=== PATIENT | male | born 1960 | race Caucasian/White ===

== ENCOUNTER 2016-05-25 07:53 | Day surgery (SDC) | payer MEDICARE, BC ==
--- NOTE | 2016-05-25 06:54 | History and Physical Report ---
DATE OF EVALUATION: 05/25/2016. CHIEF COMPLAINT AND HISTORY OF CHIEF COMPLAINT: This patient presents with a history of postlaminectomy radiculitis. His studies confirm a laminectomy at L4 -5 and 5-1. His pain pattern is low back with a bilateral lower extremity extension. Multiple conservative efforts have failed. Spinal cord stimulator is in place but has failed. He is here for an implanted spinal catheter infusion trial with hydromorphone to determine if the implantation of a permanent system can be of any value in pain control. PAST MEDICAL HISTORY: Sleep apnea, radiculitis. REVIEW OF SYSTEMS: The patient is appropriate and in no acute distress. The remainder of the systems review shows breathing difficulties, sleep disturbance. SOCIAL HISTORY: Caffeine. FAMILY HISTORY: Noncontributory. PAST SURGICAL HISTORY: Knee surgery, lumbar spinal surgery, hernia repair, stimulator implant. ALLERGIES: None. MEDICATIONS ON ADMISSION: To be provided. PHYSICAL EXAMINATION: General: Height is 6 feet, 1 inches. Weight is 200 pounds. Vital Signs: Unavailable. HEENT: Within normal limits. Lungs: Clear. Heart: Regular rate and rhythm. Abdomen: Nontender. Musculoskeletal: Examination of the musculoskeletal system shows diffuse tenderness throughout the lumbar spine. Range of motion produces pain throughout both legs. Neurologic: Cranial nerves are intact. IMPRESSIONS: 1. POSTLUMBAR LAMINECTOMY SYNDROME, ICD10 CODE M96.1. 2. LUMBAR RADICULITIS, ICD10 CODE M54.16 AND M54.17. PLANS: This patient is here for an implanted spinal catheter infusion trial with hydromorphone. We are implanting the catheter to reduce the incidence of dural puncture headaches but will perform an epidural blood patch. This will require the patient to be flat for four hours. Although the procedure could be outpatient, an overnight stay will be evaluated. All of the potential risks, side effects, and complications have been reviewed including spinal headache, nerve root injury, paralysis, and increasing pain. He has read all of the appropriate information and read the company-provided literature explaining the side effects and potential complications and has agreed to proceed. Kwasi Cano D.O. Date Time JOB NUMBER: [id number] cc: Saji Redding
[~2016-05-25 07:53] MED LIST: ACETAMINOPHEN 1000MG/100 ML PREMIX IV ONE; CEFAZOLIN 2 Gram 50 ML IVPB ONE; FAMOTIDINE 20MG TABLET PO ONE; HYDROMORPHONE HCL IV ONE; MECLIZINE 25 MG TABLET PO ONE; METOCLOPRAMIDE 10 MG TABLET PO ONE; SODIUM CHLORIDE 0.9% IV ONE
[2016-05-25] MEDS ORDERED: SENNOSIDES/DOCUSATE SODIUM UD CAPSULE PO PRN ×2 (11:31)
[2016-05-25] MEDS ORDERED: HYDROCODONE/APAP 7.5/325MG TABLET PO PRN ×2 (11:31)
[2016-05-25] MEDS ORDERED: METOCLOPRAMIDE 10 MG TABLET PO PRN (11:31)
[2016-05-25] MEDS ORDERED: AL HYDROX/MAG HYDROX 30ML UD PO PRN (11:31)
[2016-05-25] MEDS ORDERED: OXYCODONE/APAP 10MG-325MG TABLET PO PRN (11:31)
[2016-05-25] MEDS ORDERED: ACETAMINOPHEN 325 MG TAB PO PRN ×2 (11:31)
[2016-05-25] MEDS ORDERED: NALOXONE 0.4 MG/1 ML VIAL IVP PRN (11:31)
[2016-05-25] MEDS ORDERED: METOCLOPRAMIDE HCL 10 MG/2 ML VIAL IVP PRN (11:31)
[2016-05-25] MEDS ORDERED: HYDROMORPHONE HCL 1 MG/ML CPJ IM PRN (11:31)
[2016-05-25] MEDS ORDERED: HYDROMORPHONE HCL 2 MG/ML VIAL IM PRN (11:31)
[2016-05-25] MEDS ORDERED: TEMAZEPAM 15 MG CAPSULE PO PRN ×2 (11:31)
[2016-05-25] MEDS ORDERED: DIPHENHYDRAMINE HCL IV 50 MG/ML VIAL IVP PRN ×2 (11:31)
[2016-05-25] MEDS ORDERED: DIPHENHYDRAMINE HCL 25 MG CAPSULE PO PRN ×2 (11:31)
[2016-05-25] MEDS ORDERED: RINGERS SOLUTION,LACTATED 1,000 ML IV PRN (11:51)
[2016-05-25] MEDS ORDERED: LORAZEPAM 0.5 MG TABLET PO PRN (12:56)
[2016-05-25] MEDS: RINGERS SOLUTION,LACTATED 1,000 ML IV SCH ×2 (12:58→14:18)
[2016-05-25] MEDS ORDERED: BUPIVACAINE 0.5% W/EPI MPF 30 ML VIAL IVP ONE (14:54)
[2016-05-25] MEDS ORDERED: CEFAZOLIN 1G VIAL IM ONE (14:54)
[2016-05-25] MEDS ORDERED: LIDOCAINE 1% W/EPI 1:200,000 MPF 30ML SQ ONE (14:54)
[2016-05-25] MEDS ORDERED: LIDOCAINE 2% MDV (20MG/ML) 20ML VIAL IV ONE (15:48)
[2016-05-25] MEDS ORDERED: PROPOFOL 10 MG/ML VIAL IV ONE (15:48)
[2016-05-25] MEDS ORDERED: FENTANYL PF 100MCG/2ML VIAL IV ONE (15:48)
[2016-05-25] MEDS ORDERED: DEXMEDETOMIDINE HCL 200 MCG/2 ML VIAL IV ONE (15:48)
[2016-05-25] MEDS ORDERED: MIDAZOLAM HCL 2MG/2ML VIAL IV ONE (15:48)
[2016-05-25] MEDS: CEFAZOLIN 2 Gram 50 ML IVPB SCH (16:55)
[2016-05-25] MEDS: OXYCODONE/APAP 10MG-325MG TABLET PO PRN ×2 (17:00→21:40)
[2016-05-25] MEDS ORDERED: MELOXICAM 7.5 MG PO SCH (22:00)
[2016-05-25] MEDS ORDERED: ATROVASTATIN 40 MG PO SCH (22:00)
[2016-05-25] MEDS ORDERED: PATIENT OWN MED: METFORMIN 500 MG PO SCH (22:00)
[2016-05-25] MEDS ORDERED: LISINOPRIL 2.5 MG PO SCH (22:00)
[2016-05-25] MEDS ORDERED: PATIENT OWN MED: SERTRALINE 100 MG PO SCH (22:00)
[2016-05-25] MEDS ORDERED: PIOGLITAZONE 30 MG PO SCH (22:00)
[2016-05-26] MEDS: CEFAZOLIN 2 Gram 50 ML IVPB SCH ×2 (00:04→08:35)
[2016-05-26] MEDS: OXYCODONE/APAP 10MG-325MG TABLET PO PRN ×2 (03:36→08:40)
[2016-05-26] MEDS: RINGERS SOLUTION,LACTATED 1,000 ML IV SCH (06:42)
[2016-05-26] MEDS ORDERED: ARIPIPRAZOLE 10 MG PO SCH (10:00)
[2016-05-26] MEDS ORDERED: PATIENT OWN MED: HYDROCHLOROTHIAZIDE 25 MG PO SCH (10:00)
--- NOTE | 2016-05-26 15:38 | Operative Note - [facility] ---
DATE OF SURGERY: 05/25/16 PREOPERATIVE DIAGNOSES: 1. POST LUMBAR LAMINECTOMY SYNDROME, ICD-10 CODE = M96.1. 2. LUMBAR RADICULITIS, ICD-10 CODE = M54.16 AND M54.17. OPERATION: 1. FLUOROSCOPICALLY-GUIDED SPINAL ACCESS AT L1/2. PLACEMENT OF THIN-WALLED SPINAL CATHETER T11. 2. DIAGNOSTIC MYELOGRAPHY WITH RADIOLOGIC SUPERVISION AND INTERPRETATION. 3. SPINAL OPIOID BOLUS HYDROMORPHONE SPINAL SPACE, 0.002 MG. 4. INCISION, SUBCUTANEOUS DISSECTION, AND ANCHORING OF CATHETER TO SUPRASPINOUS FASCIA USING ANCHORING DEVICE AND NONABSORBABLE SUTURE. 5. INCISION, SUBCUTANEOUS DISSECTION, AND CREATION OF SUBCUTANEOUS POUCH AT RIGHT POSTERIOR/SUPERIOR GLUTEAL MARGIN. 6. TUNNELING CATHETER MIDLINE INTO FLANK POSTERIOR POUCH, RESECT INTERFACE SPINAL CATHETER WITH A SECONDARY CATHETER COMPONENT WITH CONNECTOR, TUNNELING SECONDARY CATHETER COMPONENT 6 CM SUPERIOR EXITING SKIN. 7. INTERFACE EXTERNAL CATHETER TO EXTERNAL PUMP SET TO INFUSE HYDROMORPHONE AT 0.04 MG PER DAY. 8. CLOSURE OF MIDLINE INCISION, VICRYL FOR FASCIA, RUNNING SUBCUTICULAR VICRYL FOR SKIN. CLOSURE OF GLUTEAL POUCH, NYLON SUTURE. 9. EPIDURAL BLOOD PATCH AT L2/3. 20 mL AUTOLOGOUS BLOOD DRAWN STERILE TECHNIQUE , LEFT ANTECUBITAL. DRESSING REINFORCED. 10. TRANSFER PATIENT TO RECOVERY ROOM FLAT, PILLOW UNDER HEAD AND KNEES, STABLE , SHOWING NO SIDE-EFFECTS FROM THE PROCEDURE OR THE SEDATION. SURGEON: PHILIP ROWE D.O. ANESTHESIA: LOCAL SEDATION. ANESTHESIA PROVIDER: TU CALDERÓN CRNA INDICATION: This patient with post laminectomy radiculitis is here for an implanted spinal catheter infusion trial Hydromorphone to determine if the implantation of a permanent system can be of any value in pain control. PROCEDURE: Intravenous line, vital sign monitoring, IV sedation, prepped, draped, sterile technique, patient position on the operating room table prone. Sterile prep, sterile technique, and under imaging, the spinal interspace above his fusion and laminectomy was marked at L1/2 and at L2/3. At L1/2, skin infiltrated, then a #20 gauge spinal needle beveled with a long axis in a paramedian approach was placed into the spinal space. With CSF flow, a thin- walled spinal catheter was advanced, positioned T11. Diagnostic myelography performed resulting flow characteristics were smooth and linear into the space confirming spinal flow. Catheter was midline. No bend, kinks, or turns. A bolus of Hydromorphone through the spinal catheter, 0.002 mg, was given. The skin above and below the needle infiltrated, incision was made and subcutaneous dissection was conducted to the supraspinous fascia. The needle was removed and the catheter was anchored to the supraspinous fascia using an anchor device and nonabsorbable suture. At the right posterior gluteal margin, a site ultimately for the pump picked by the patient, skin infiltrated, incision made, and a small subcutaneous pouch was formed. Spinal catheter was then tunneled into the posterior gluteal pouch exiting in the pouch itself. Spinal catheter was then resected and interfaced by way of a connector to a second catheter component. This second catheter component was tunneled superior exiting the skin above 6 cm. The external catheter was then interfaced to an external pump, which was set to infuse Hydromorphone at 0.04 mg per day. Antibiotic irrigation and Bovie for hemostasis. The midline incision was closed Vicryl for fascia, running subcuticular Vicryl for skin. The posterior pouch incision closed with nylon. Sterile dressings placed. At L2/3, the site below the puncture point, which had been infiltrated, an #18 gauge Tuohy was then positioned through the site and into the epidural space with a [id number] technique. Simultaneously, 20 mL of autologous blood drawn sterile technique. Using blood placed onto the field, then an epidural blood patch was then performed at this site with this blood. This needle was removed. The site was cleaned. Dressings reinforced so that all catheter connections were under sterile dressing. He was then transported to the Recovery Room stable showing no side-effects from the procedure or the sedation. He will lay flat for four hours, slowly elevated for one. He will be kept overnight for observation. DISCHARGE INSTRUCTIONS IN THE MORNIN. The sites will remain clean and dry. No showering or bathing in any way that would disrupt dressings. If it happens, contact the clinic. 2. Standard medications resumed including the antibiotic, Levaquin, 500 mg once a day for 14 days. 3. The trial will run 14 days. During this period of time, we will evaluate pain control, quality of life, medication reduction, and activity; although he is to keep his activities within limits to ensure no loss of incision or breakdown of incision. Scheduled appointments for increases will be made if necessary. At the end of the trial period, we will evaluate for possible permanent implant or removal of the implanted catheter. All other instructions provided, numbers to contact, problems given. He will be evaluated in the office within the next 5-7 days. PHILIP ROWE D.O. Date & Time cc: Dr. Barrow JOB NUMBER: [id number] MTDD
--- NOTE | 2016-05-30 07:40 | RADIOLOGY REPORT ---
DATE: 05/25/2016 at 10:52 a.m. EXAM: THORACOLUMBAR SPINE. HISTORY: Post pain pump trial with implanted catheter. TECHNIQUE: Single AP view of the thoracolumbar spine was obtained. COMPARISON: None. FINDINGS: There are two segmented catheter/wires extending from the left side of the abdomen to overly the spine at the L2 level and ascend up to the T9 level. Some spurring in the spine. IMPRESSION: THE TWO CATHETER/WIRES EXTEND UP TO THE T9 LEVEL. JOB NUMBER: [id number] MTDD
== END 2016-05-26 10:30 | disposition home or self-care (01) ==
LOC: SUR 07:53 → MEDSURG 11:40 → SUR 05-26 10:30
PROVIDERS: ATTEND Pain Medicine Interventional Pain Medicine
DX: M96.1 Postlaminectomy syndrome, not elsewhere classified (principal); M54.17 Radiculopathy, lumbosacral region; E78.00 Pure hypercholesterolemia, unspecified; E11.9 Type 2 diabetes mellitus without complications; Z79.4 Long term (current) use of insulin; I10 Essential (primary) hypertension
CPT/HCPCS: 62350; 00630; 36416; 82948; 72020; 94761; Q9967; J1170; J3010; J0690 ×2; J3490; J7040; J7120

== ENCOUNTER 2016-06-08 10:13 | Day surgery (SDC) | payer MEDICARE, BC ==
--- NOTE | 2016-06-08 08:06 | History and Physical Report ---
DATE OF EVALUATION: 06/07/2016. CHIEF COMPLAINT AND HISTORY OF CHIEF COMPLAINT: This patient presents with a history of a postlaminectomy radiculitis. He has an ongoing implanted spinal catheter infusion trial with hydromorphone. He is achieving up to 70 to 80% pain control, and by his request is here for implantation of a permanent system. PAST MEDICAL HISTORY: Sleep apnea, postlaminectomy radiculitis. REVIEW OF SYSTEMS: The patient seems appropriate and in no acute distress. The remainder of the systems review shows breathing difficulties, sleep disturbance. SOCIAL HISTORY: Caffeine. FAMILY HISTORY: Noncontributory. PAST SURGICAL HISTORY: Knee surgery, lumbar spinal surgery, hernia repair, stimulator implant. ALLERGIES: None. MEDICATIONS ON ADMISSION: To be provided. PHYSICAL EXAMINATION: General: Height is 6 feet, 1 inches. Weight is 240 pounds. Vital Signs: Unavailable. HEENT: Within normal limits. Lungs: Clear. Heart: Regular rate and rhythm. Abdomen: Nontender. Musculoskeletal: Examination of the musculoskeletal system shows dressings which are enclosing the implanted catheter trial are intact. His underlying pain pattern is low back, hip, and leg. Sensory oquendo are intact. Neurologic: Cranial nerves are intact. IMPRESSIONS: 1. POSTLUMBAR LAMINECTOMY SYNDROME, ICD10 CODE M96.1. 2. LUMBAR RADICULITIS, ICD10 CODE M54.16 AND M54.17. 3. IMPLANTED SPINAL CATHETER INFUSION TRIAL WITH HYDROMORPHONE. PLANS: This patient has 70 to 80% pain control and is doing well. He wants to move to the implant. The procedure will involve removing the external catheter , interfacing with the pump placed at the posterior gluteal margin. Although an overnight stay can be evaluated, this could theoretically be an outpatient procedure. All of the risks, side effects, and complications have all been carefully reviewed and discussed. The appropriate information from the optical designer also outlined the potential risks, side effects, and complications and has been provided for review. Kwasi Cano D.O. Date Time JOB NUMBER: [id number] cc: Alfonso Price D.O. MTDD
[~2016-06-08 10:13] MED LIST changes: +HYDROMORPHONE HCL 0.016 GM in 0.9 % SODIUM CHLORIDE 10ML VIA 20 ML IV ONE; -HYDROMORPHONE HCL IV ONE; +HYDROMORPHONE HCL/PF 0.002 MG in 0.9 % SODIUM CHLORIDE 10ML VIA 0.998 ML IVP ONE; -SODIUM CHLORIDE 0.9% IV ONE
[2016-06-08] MEDS ORDERED: OXYCODONE/APAP 10MG-325MG TABLET PO PRN (15:04)
[2016-06-08] MEDS ORDERED: HYDROCODONE/APAP 7.5/325MG TABLET PO PRN ×2 (15:04)
[2016-06-08] MEDS ORDERED: NALOXONE 0.4 MG/1 ML VIAL IVP PRN (15:04)
[2016-06-08] MEDS ORDERED: DIPHENHYDRAMINE HCL 25 MG CAPSULE PO PRN ×2 (15:04)
[2016-06-08] MEDS ORDERED: TEMAZEPAM 15 MG CAPSULE PO PRN ×2 (15:04)
[2016-06-08] MEDS ORDERED: AL HYDROX/MAG HYDROX 30ML UD PO PRN (15:04)
[2016-06-08] MEDS ORDERED: SENNOSIDES/DOCUSATE SODIUM UD CAPSULE PO PRN ×2 (15:04)
[2016-06-08] MEDS ORDERED: HYDROMORPHONE HCL 1 MG/ML CPJ IM PRN (15:04)
[2016-06-08] MEDS ORDERED: METOCLOPRAMIDE 10 MG TABLET PO PRN (15:04)
[2016-06-08] MEDS ORDERED: ACETAMINOPHEN 325 MG TAB PO PRN ×2 (15:04)
[2016-06-08] MEDS ORDERED: METOCLOPRAMIDE HCL 10 MG/2 ML VIAL IVP PRN (15:04)
[2016-06-08] MEDS ORDERED: DIPHENHYDRAMINE HCL IV 50 MG/ML VIAL IVP PRN ×2 (15:04)
[2016-06-08] MEDS ORDERED: HYDROMORPHONE HCL 2 MG/ML VIAL IM PRN (15:04)
[2016-06-08] MEDS: RINGERS SOLUTION,LACTATED 1,000 ML IV SCH ×2 (15:10→22:00)
[2016-06-08] MEDS ORDERED: LORAZEPAM 0.5 MG TABLET PO PRN (15:19)
[2016-06-08] MEDS ORDERED: CEFAZOLIN 1G VIAL IM ONE (16:40)
[2016-06-08] MEDS ORDERED: BUPIVACAINE 0.5% W/EPI MPF 30 ML VIAL IVP ONE (16:40)
[2016-06-08] MEDS ORDERED: LIDOCAINE 1% W/EPI 1:200,000 MPF 30ML SQ ONE (16:40)
[2016-06-08] MEDS ORDERED: HYDROMORPHONE HCL 2 MG/ML VIAL IV ONE (16:45)
[2016-06-08] MEDS ORDERED: PROPOFOL 10 MG/ML VIAL IV ONE (16:45)
[2016-06-08] MEDS ORDERED: MIDAZOLAM HCL 2MG/2ML VIAL IV ONE (16:45)
[2016-06-08] MEDS ORDERED: FENTANYL PF 100MCG/2ML VIAL IV ONE (16:45)
[2016-06-08] MEDS: OXYCODONE/APAP 10MG-325MG TABLET PO PRN ×2 (18:46→22:48)
[2016-06-08] MEDS: CEFAZOLIN 2 Gram 50 ML IVPB SCH (20:13)
[2016-06-08] MEDS ORDERED: LISINOPRIL 5 MG TABLET PO SCH (22:00)
[2016-06-08] MEDS ORDERED: METFORMIN 500 MG TABLET PO SCH (22:00)
[2016-06-08] MEDS ORDERED: SERTRALINE HCL 50 MG TABLET PO SCH (22:00)
[2016-06-08] MEDS ORDERED: PIOGLITAZONE HCL 15 MG TABLET PO SCH (22:00)
[2016-06-08] MEDS ORDERED: ARIPIPRAZOLE 10 MG PO SCH (22:00)
[2016-06-09] MEDS: CEFAZOLIN 2 Gram 50 ML IVPB SCH (04:45)
[2016-06-09] MEDS: RINGERS SOLUTION,LACTATED 1,000 ML IV SCH (07:04)
--- NOTE | 2016-06-09 15:10 | Operative Note - [facility] ---
DATE OF SURGERY: 06/08/16 PREOPERATIVE DIAGNOSES: 1. POST LUMBAR LAMINECTOMY SYNDROME, ICD-10 CODE = M96.1. 2. LUMBAR RADICULITIS, ICD-10 CODE = M54.16 AND M54.17. 3. IMPLANTED SPINAL CATHETER INFUSION TRIAL HYDROMORPHONE. OPERATION: 1. FLUOROSCOPICALLY-GUIDED INCISION, SUBCUTANEOUS DISSECTION, AND REMOVAL OF MIGRATED IMPLANTED CATHETER. 2. FLUOROSCOPICALLY-GUIDED SPINAL ACCESS L2/3, PLACEMENT OF THIN-WALLED SPINAL CATHETER T12/L1. 3. DIAGNOSTIC MYELOGRAPHY WITH RADIOLOGIC SUPERVISION AND INTERPRETATION. 4. INCISION, SUBCUTANEOUS DISSECTION, AND CREATION OF SUBCUTANEOUS POUCH AT RIGHT POSTERIOR GLUTEAL MARGIN FOR PLACEMENT OF PUMP IDENTIFIED A MEDTRONIC 20 ML PROGRAMMABLE. 5. TUNNELING BETWEEN POUCHES. PLACEMENT OF EXTERNAL PORTION OF SPINAL CATHETER INTO PUMP POUCH INTERFACED TO A SECONDARY CATHETER COMPONENT BY WAY OF CONNECTOR. 6. INTERFACED REVISED CATHETER TO PUMP. PLACEMENT OF PUMP INTO POUCH. 7. ASPIRATING 1 ML CATHETER CONTENTS CLEARING CATHETER OF OPIOID AND CSF MIXTURE. 8. DIAGNOSTIC MYELOGRAPHY WITH RADIOLOGIC SUPERVISION AND INTERPRETATION. 9. CLOSURE OF INCISIONS, VICRYL FOR FASCIA, RUNNING SUBCUTICULAR VICRYL FOR SKIN. 10. EPIDURAL BLOOD PATCH AT L3/4, 20 ML AUTOLOGOUS BLOOD STERILE TECHNIQUE, LEFT ANTECUBITAL. 11. PROGRAMMING OF PUMP TO DELIVER HYDROMORPHONE AT 0.08 MG PER DAY. SURGEON: PHILIP ROWE D.O. ANESTHESIA: LOCAL SEDATION. ANESTHESIA PROVIDER: GIGI FORREST CRNA. INDICATION: This patient presents with an implanted spinal catheter infusion trial Hydromorphone with 80 to 90% pain control. He is here for completion with placement of pump. PROCEDURE: Intravenous line, vital sign monitoring, IV sedation, prepped and draped with sterile technique. Under imaging, the interfaced catheter component to the right posterior gluteal margin were identified. The skin was infiltrated at the posterior pouch and the connector interfacing indwelling and external catheter was identified. Dissection was performed. The connector was from the external catheter. The external catheter was removed intact. During the process of removing the external catheter and manipulating the connector to the spinal catheter, the internal spinal catheter was retracted out of the space resulting in no indwelling spinal catheter. At that point, the midline spinal catheter incision was infiltrated with local, incision made, and subcutaneous dissection was conducted to the anchor and the catheter component, which was previous intraspinal was identified within the subcutaneous space. Again, confirming that the catheter had been retracted out of the space. At that point, the anchor was removed and that component of the catheter removed. A spinal needle was then used to re-access the spinal space and place a new spinal catheter midline T12/L1. Diagnostic myelography confirming the appropriate myelogram flow characteristics. The needle was removed and the catheter was anchored to the supraspinous fascia. This catheter was then interfaced and tunneled to the pump pouch interfaced with the connector and then interfaced to the pump completing the connection between the indwelling spinal catheter, which was replaced and the pump. At the access port to the pump , 1 mL of catheter contents was aspirated clearing the catheter again of CSF and confirming patency. Contrast was again injected and resulting myelogram confirming the functionality and patency of the new catheter and pump connections. The midline incision was then closed Vicryl for fascia and running subcuticular Vicryl for skin, the posterior incisional site for the pump, which had been placed subcutaneously after a suitable-sized pouch was formed for the pump Guavastronic 20 mL Programmable. The pump was secured to the posterior fascia of the pouch using nonabsorbable suture at two points for the pump eyelets. With the pump firmly secured subcutaneously and the connections confirmed by way of contrast study, both incisions were closed Vicryl for fascia, running subcuticular Vicryl for skin. Dermabond closure over each. One level below the spinal access at L3/4, skin infiltrated, and then an 18-gauge Tuohy needle with [id number] was used to gain entry into the epidural space. 20 mL of autologous blood drawn sterile technique placed onto the field and then an epidural blood patch was performed at this level with this blood. Needle removed. The dressings were reinforced. He was transported to the Recovery Room flat, pillow under head and knees, stable, showing no side-effects from the procedure. He will be kept flat for four hours, slowly elevated for one, but kept overnight for observation because of the difficulty of the procedure. DISCHARGE INSTRUCTIONS IN THE MORNIN. The sites will remain clean and dry although the Dermabond will allow showering. 2. Standard medications resumed continuing Levaquin 500 mg once a day for 14 days. 3. Spinal opioid side-effects including respiration depression, nausea, vomiting , constipation, urinary retention, lightheadedness, or rash have all been discussed and reviewed. All other instructions provided, numbers to contact with problems given. At that point, he will be prepared for discharge in the morning. PHILIP ROWE D.O. Date & Time cc: Dr. Barrow JOB NUMBER: [id number] MTDD
== END 2016-06-09 09:31 | disposition home or self-care (01) ==
LOC: SUR 10:13 → MEDSURG 14:13 → SUR 06-09 09:31
PROVIDERS: ATTEND Pain Medicine Interventional Pain Medicine
DX: M96.1 Postlaminectomy syndrome, not elsewhere classified (principal); M54.16 Radiculopathy, lumbar region; M54.17 Radiculopathy, lumbosacral region; E11.9 Type 2 diabetes mellitus without complications; Z79.84 Long term (current) use of oral hypoglycemic drugs; I10 Essential (primary) hypertension; E78.00 Pure hypercholesterolemia, unspecified; M10.9 Gout, unspecified
CPT/HCPCS: 62367; 72020; 62350; 62362; 00630; Q9967; J1170 ×2; J3010; J0690 ×2; C1755; J7120